=== PATIENT | female | born 2000 | race Caucasian/White ===

== ENCOUNTER 2022-02-07 23:20 | Emergency (ER) | payer MEDICAID ==
[2022-02-08] MEDS ORDERED: Magnesium Hydroxide 400 MG/5 ML Susp 30 ML Cup PO ONE (01:13)
[2022-02-08] MEDS ORDERED: hydrOXYzine HCl 25 MG Tab PO ONE (01:14)
== END 2022-02-08 06:45 | disposition home or self-care (01) ==
LOC: JP.ED 23:20
DX: K59.00 Constipation, unspecified (principal); F41.9 Anxiety disorder, unspecified
CPT/HCPCS: 99281; 99283; A9270-GY

== ENCOUNTER 2022-02-08 22:00 | Emergency (ER) | payer MEDICAID | END 2022-02-08 23:58 | disposition home or self-care (01) | LOC: JP.ED 22:00 | DX: F22 Delusional disorders (principal); F31.9 Bipolar disorder, unspecified; R09.3 Abnormal sputum | CPT/HCPCS: 36415; 71046; 85025; 85379; 99281; 99284; A9270; 99282 ==

== ENCOUNTER 2022-02-09 01:03 | Emergency (ER) | payer MEDICAID ==
[2022-02-09] MEDS ORDERED: QUEtiapine 25 MG Tab PO ONE (01:37)
== END 2022-02-09 08:50 | disposition home or self-care (01) ==
LOC: JP.ED 01:03
DX: F31.81 Bipolar II disorder (principal); F17.210 Nicotine dependence, cigarettes, uncomplicated
CPT/HCPCS: 99284; A9270; 99283